=== PATIENT | male | born 1960 | race Caucasian/White ===

== ENCOUNTER 2018-06-07 09:20 | Day surgery (SDC) | payer OTHER ==
[~2018-06-07 09:20] MED LIST: ACETAMINOPHEN 1,000 MG/100 ML BTL IV ONE; CEFAZOLIN 2 Gram 2 GM/50 ML BAG IVPB ONE
[2018-06-07] MEDS ORDERED: KETOROLAC 30 MG/ML VIAL IVP ONE (09:21)
[2018-06-07] MEDS ORDERED: FENTANYL PF 100MCG/2ML VIAL IV ONE (09:21)
[2018-06-07] MEDS ORDERED: SEVOFLURANE 250 ML INH ONE (09:21)
[2018-06-07] MEDS ORDERED: PROPOFOL 10 MG/ML VIAL IV ONE (09:21)
[2018-06-07] MEDS ORDERED: ONDANSETRON HCL IV 4 MG/2 ML VIAL IVP ONE (09:21)
[2018-06-07] MEDS ORDERED: ROPIVACAINE HCL (NAROPIN) /PF 5MG/ML 20ML VIAL IV ONE (09:21)
[2018-06-07] MEDS ORDERED: MIDAZOLAM HCL 2MG/2ML VIAL IV ONE (09:21)
[2018-06-07] MEDS ORDERED: LIDOCAINE 2% MDV (20MG/ML) 20ML VIAL IV ONE (09:21)
[2018-06-07] MEDS ORDERED: EPHEDRINE SULFATE 50 MG/ML ML IV ONE (09:21)
[2018-06-07] MEDS ORDERED: DEXAMETHASONE 4 MG/ML 1ML VIAL IVP ONE (09:21)
[2018-06-07] MEDS: BUPIVACAINE 0.5% W/EPI MPF 30 ML VIAL IVP ONE (12:15)
[2018-06-07] MEDS: BUPIVACAINE 0.5% W/EPI MPF 30 ML VIAL SQ ONE (12:15)
--- NOTE | 2018-06-08 08:30 | Operative Note ---
DATE OF SURGERY: 06/07/2018 PREOPERATIVE DIAGNOSIS: Traumatic arthrosis of left talonavicular joint. POSTOPERATIVE DIAGNOSIS: Traumatic arthrosis of left talonavicular joint. OPERATION: 1. Left talonavicular arthrodesis with autograft bone graft. 2. Autograft bone graft procurement from left proximal tibia. Staff Surgeon: Joseph Coffey MD Anesthesia: General. Preparation: Chloraprep. Individual Considerations: None. PROCEDURE: The patient was taken to the operating room and placed supine on the operating room table. He had a successful induction of a general anesthetic. His left leg and knee were prepped and draped in the usual fashion. The patient had about a 4-5 cm incision over the navicular anteromedially. This was verified by fluoroscopy. Skin was infiltrated with 0.5% Marcaine with epinephrine prior. Sharp dissection carried down through the skin. I think used a needle to find the joint and then this was verified by fluoroscopy. I went head and opened the capsule up. In order to get in there, I actually had to take an osteotome and unroof some of the osteophytes and I was easily able to enter into the joint. I then used a small Rongeur and ethmoid and a small curet to denude the joint which had areas of exposed bone but I completely denuded it, irrigated it out. This was all verified by fluoroscopy. I then made an incision over the tibial tubercle along the midline. Total length was about 4 cm. Skin was again infiltrated with 0.5% Marcaine with epinephrine prior. Sharp dissection carried down through skin. Small veins were coagulated with a Bovie. I then made a window in the proximal tibia using a drill and osteotome about 1 x 1 cm and then used a small pituitary Rongeur to grab cancellous bone graft. This cancellous bone graft was then packed into the arthrodesis site. I then placed three 4.0 cannulated screws across the navicular into the talus. I placed two medially and one dorsal laterally. This was verified by fluoroscopy and screws of appropriate length were placed. This gave excellent stable arthrodesis and osteosynthesis. After irrigation, subcu in both wounds was closed with 3-0 plus Vicryl, skin was closed with ilana. Sterile bulky compressive dressings were applied. The patient tolerated procedure well. Needle and sponge counts were correct. Estimated blood loss was minimal. The patient was taken back to recovery in good condition. There were no complications. MTDD
== END 2018-06-07 14:40 | disposition home or self-care (01) ==
LOC: SUR 09:20
PROVIDERS: ATTEND Orthopaedic Surgery
DX: M12.572 Traumatic arthropathy, left ankle and foot (principal); G47.33 Obstructive sleep apnea (adult) (pediatric)
CPT/HCPCS: 76942; J1885; J2405